=== PATIENT | female | born 1975 | race Caucasian/White ===

== ENCOUNTER 2018-04-06 11:02 | Inpatient (IN) | payer BC ==
[2018-03-11 12:02] VITALS: BMI 27.6
[2018-04-06] MEDS ORDERED: Propofol 10 mg/ml Inj (20 ML) ONE (13:13)
[2018-04-06] MEDS ORDERED: Midazolam 2 MG/2 ML VIAL ONE (13:14)
[2018-04-06] MEDS ORDERED: Rocuronium 10 mg/ml (5 ml) ONE (13:17)
[2018-04-06] MEDS ORDERED: Bupivacaine Liposomal Inj 20 ml ONE (13:37)
[2018-04-06] MEDS ORDERED: ePHEDrine 50 mg/ml Inj ONE (14:03)
[2018-04-06] MEDS ORDERED: Neostigmine Methylsulfate 3mg/3ml Syringe IV ONE (14:10)
[2018-04-06] MEDS ORDERED: Glycopyrrolate 0.2 mg/ml (2ml vial) ONE (14:11)
[2018-04-06] MEDS: HYDROmorphone 0.5 mg/0.5 ml ISec ONE ×3 (15:07→15:40)
[2018-04-06] MEDS ORDERED: HYDROmorphone 0.5 mg/0.5 ml ISec IVP PRN (15:08)
[2018-04-06] MEDS ORDERED: HYDROmorphone 0.2 mg/ml (30ml) 30 ML IV PRN ×2 (15:14→15:22)
[2018-04-06] MEDS ORDERED: Lactated Ringer's 1,000 ML IV SCH (15:15)
--- NOTE | 2018-04-06 15:21 | PCM.SURG1 ---
Surgeon's Initial Post Op Note - Surgeon's Notes Surgeon: Dr. Thom Holt Straight Knife Cutter Machine: Archana Ramirez PGY2 Type of Anesthesia: General Endo Anesthesia Administered By: Dr. Foster Pre-Operative Diagnosis: uterine fibroids, hemorrhagia, anemia Operative Findings: numerous uterine fibroids, adequate hemostasis obtained by the end of the case via electrocautery and suture ligation Post-Operative Diagnosis: same Operation Performed: laparotomy, supracervical hysterectomy, BL salpingectomy Specimen/Specimens Removed: uterus, BL fallopian tubes Estimated Blood Loss: EBL {In ML}: 30 Blood Products Given: N/A Drains Used: No Drains Post-Op Condition: Fair Date of Surgery/Procedure: 04/06/18 Time of Surgery/Procedure: 13:00
[2018-04-06] MEDS ORDERED: HYDROmorphone 0.5 mg/0.5 ml ISec ONE ×3 (15:27→15:56)
[2018-04-07 07:10] LABS: BASO # 0.01 K/mm3 (0.0-2.0); BASO % 0.1 % (0.0-3.0); GRAN # 14.69 (1.4-6.5); GRAN % 83.8 % (50.0-68.0); HEMOGLOBIN 10.6 g/dL (12.0-16.0); LYMPH # 1.9 (1.2-3.4); LYMPH % 10.6 % (22.0-35.0); MEAN CELL VOLUME 74.5 fl (80.0-105.0); MEAN CORPUSCULAR HEMOGLOBIN 23.1 pg (25.0-35.0); MEAN PLATELET VOLUME 9.8 fl (7.0-11.0); MONO % 5.5 % (1.0-6.0); RBC 4.59 10^6/uL (3.5-6.1); RED CELL DISTRIBUTION WIDTH 17.3 % (11.5-14.5); WHITE BLOOD COUNT 17.5 10^3/ul (4.5-11.0)
[2018-04-07 07:13] LABS: BLOOD UREA NITROGEN 9 mg/dL (7-21); CALCIUM 8.6 mg/dL (8.4-10.5); GFR NON-AFRICAN AMERICAN > 60
[2018-04-07 07:43] VITALS: BP 136/84; PULSE 65; RESP 20; TEMP 99.9; O2SAT 99
[2018-04-07] MEDS: Oxycodone/Acetaminophen 5/325 mg Tab PO PRN ×2 (09:48→13:04)
--- NOTE | 2018-04-07 10:08 | CP.PCM.DIS ---
Provider - Provider Date of Admission: 04/06/18 11:02 Attending physician: Asif Holt MD Time Spent in preparation of Discharge (in minutes): 35 Diagnosis - Discharge Diagnosis (1) Status post bilateral salpingectomy Status: Acute (2) Status post hysterectomy Status: Acute (3) Fibroid (bleeding) (uterine) Status: Chronic (4) Anemia Status: Chronic Hospital Course - Lab Results Lab Results: Most Recent Lab Values WBC 17.5 10^3/ul (4.5-11.0) H D 04/07/18 06:30 RBC 4.59 10^6/uL (3.5-6.1) 04/07/18 06:30 Hgb 10.6 g/dL (12.0-16.0) L 04/07/18 06:30 Hct 34.2 % (36.0-48.0) L 04/07/18 06:30 MCV 74.5 fl (80.0-105.0) L 04/07/18 06:30 MCH 23.1 pg (25.0-35.0) L 04/07/18 06:30 MCHC 31.0 g/dl (31.0-37.0) 04/07/18 06:30 RDW 17.3 % (11.5-14.5) H 04/07/18 06:30 Plt Count 283 10^3/uL (120.0-450.0) 04/07/18 06:30 MPV 9.8 fl (7.0-11.0) 04/07/18 06:30 Gran % 83.8 % (50.0-68.0) H 04/07/18 06:30 Lymph % (Auto) 10.6 % (22.0-35.0) L 04/07/18 06:30 Curry % (Auto) 5.5 % (1.0-6.0) 04/07/18 06:30 Eos % (Auto) 0.0 % (1.5-5.0) L 04/07/18 06:30 Baso % (Auto) 0.1 % (0.0-3.0) 04/07/18 06:30 Gran # 14.69 (1.4-6.5) H 04/07/18 06:30 Lymph # (Auto) 1.9 (1.2-3.4) 04/07/18 06:30 Curry # (Auto) 1.0 (0.1-0.6) H 04/07/18 06:30 Eos # (Auto) 0.0 (0.0-0.7) 04/07/18 06:30 Baso # (Auto) 0.01 K/mm3 (0.0-2.0) 04/07/18 06:30 Sodium 136 mmol/L (132-148) 04/07/18 06:30 Potassium 3.9 mmol/L (3.6-5.0) 04/07/18 06:30 Chloride 103 mmol/L (98-107) 04/07/18 06:30 Carbon Dioxide 26 mmol/L (21-33) 04/07/18 06:30 Anion Gap 11 (10-20) 04/07/18 06:30 BUN 9 mg/dL (7-21) 04/07/18 06:30 Creatinine 0.6 mg/dl (0.7-1.2) L 04/07/18 06:30 Est GFR ( Amer) > 60 04/07/18 06:30 Est GFR (Non-Af Amer) > 60 04/07/18 06:30 Random Glucose 126 mg/dL (70-110) H 04/07/18 06:30 Calcium 8.6 mg/dL (8.4-10.5) 04/07/18 06:30 Urine HCG, Qual Negative (NEGATIVE) 04/06/18 11:00 - Hospital Course Hospital Course: Pt is a 42F with PMH of uterine fibroid, hemorrhagia, and chronic anemia who presented to same day and underwent a laparotomy, supracervical hysterectomy, and bilateral salpingectomy with no complications. Patient was admitted to the medical surgical floor for monitoring and pain management. Patient recovered well and was discharged to home with instructions to follow up with Dr. Holt in his office. Discharge Exam - Head Exam Head Exam: ATRAUMATIC, NORMOCEPHALIC - Eye Exam Eye Exam: Normal appearance. absent: Conjunctival injection, Scleral icterus - ENT Exam ENT Exam: Mucous Membranes Moist, Normal Oropharynx - Respiratory Exam Respiratory Exam: NORMAL BREATHING PATTERN, UNREMARKABLE. absent: Accessory Muscle Use - Cardiovascular Exam Cardiovascular Exam: RRR - GI/Abdominal Exam GI & Abdominal Exam: Soft, Tenderness (BL lower quadrant and conchita-incisional tenderness to palpation). absent: Distended Additional comments: Lower abdominal incision well approximated with dermabond, no surrounding inflammation, drainage, or bleeding - Extremities Exam Extremities exam: normal inspection, pedal pulses present - Neurological Exam Neurological exam: Alert, Oriented x3 - Psychiatric Exam Psychiatric exam: Normal Affect, Normal Mood - Skin Skin Exam: Dry, Normal Color, Warm Discharge Plan - Discharge Medications Prescriptions: oxyCODONE/Acetaminophen [Percocet 5/325 mg Tab] 1 tab PO Q4H PRN #16 tab PRN Reason: Pain, Moderate (4-7) - Follow Up Plan Condition: GOOD Disposition: HOME/ ROUTINE Instructions: Uterine Fibroid Removal (DC) Additional Instructions: Call Dr. Holt's office to schedule a follow up appointment in 1 week You may shower, but do not soak the incisions, do not attempt to remove the surgical glue dressing Do not lift >[address] Holt's office or come to ER for any fever >100.4 not resolved with tylenol, worsening pain, nausea, vomiting, or drainage from in the incision, or any other concerning symptoms Referrals: Asif Holt MD [Staff Provider] - Clinical Quality Measures - CQM - Stroke Antithrombotic Prescribed: Medical Contraindication Present (SCD were utilized) Contranindication/Reason for not providing: Risk for Bleeding (s/p hysterectomy)
--- NOTE | 2018-04-20 03:51 | OP ---
PROCEDURE DATE: 04/06/2018 PREOPERATIVE DIAGNOSES: Severe menometrorrhagia, symptomatic fibroid uterus, pelvic pain. POSTOPERATIVE DIAGNOSIS: Severe menometrorrhagia, symptomatic fibroid uterus, pelvic pain. PROCEDURE PERFORMED: Laparotomy, supracervical abdominal hysterectomy, bilateral ovarian salpingectomies. SURGEON: Asif Holt MD. YARN PACKER: . ANESTHESIA: General endotracheal. ESTIMATED BLOOD LOSS: 100 mL. FINDINGS: The uterus size was approximately 15 weeks in size with multiple fibroids. Ovaries found to be normal. No signs of endometriosis noted. DESCRIPTION OF PROCEDURE: After a long discussion was held with the patient and family regarding her surgery, all consents were signed, procedure was explained to the patient, patient was brought into the operating room. General endotracheal anesthesia was induced. The patient was prepped and draped in usual sterile fashion. Araya catheter was inserted. Pfannenstiel skin incision was made. Incision was brought down to the fascia. The fascia was opened, rectus muscles split, peritoneum was visualized, grasped with 2 hemostats, opened superiorly and inferiorly avoiding the bladder. Entrance in the pelvic cavity, the uterus was noted to be approximately 15 weeks in size with multiple fibroids extending laterally as well as superiorly. With the bowels and an O'Edinson-O'Aguilar retractor placed an underlaps. The uterus was slightly elevated upwards. Using the LigaSure device, round ligaments were first visualized, grasped, elevated, clamped and fired upon. As this was an ovarian sparing procedure, the ovarian ligaments were then clamped, cut, fired upon and sealed. This continued down until the cardinal ligaments were reached. At this point, the bladder flap was created with sharp dissection and was brought down. Then, using the Kochers, the cardinal ligaments were grasped, clamped, cut and the suture ligated with 0 Vicryl suture. The cervix was amputated from the remainder of the uterine body. The entire uterus then was sent to pathology for examination. Using a small LEEP, the endocervical canal was excised. This was followed with suturing and imbricating of the cervical stump using 0 Vicryl suture. Hemostasis was excellent throughout this entire time. Minimal amount of blood loss noted. The fallopian tubes were then visualized, grasped and fired upon with the LigaSure device, thus amputating and removing the salpinges. Hemostasis again was excellent. As of note, examination of the ovaries revealed no abnormalities. No ovarian cysts. Left ovary was slightly atrophic in its findings. The pelvis then was thoroughly irrigated, suctioned dry. Hemostasis was excellent. All instruments were removed. All laps were accounted for. The closure was initiated. Peritoneum was closed with 2-0 chromic. Fascia was closed with 0 Vicryl. Subcu was closed with 2-0 plain and 4-0 Monocryl was used for the skin. The patient tolerated the procedure well. Dermabond was applied. She was awakened, sent to the recovery room in stable condition. Asif Holt MD
== END 2018-04-07 13:45 | disposition home or self-care (01) | DRG 743 ==
LOC: SDAINP 11:02 → EDSTATUS 13:00 → 5RNO 16:32
PROVIDERS: ADMIT Obstetrics & Gynecology Gynecology; ATTEND Obstetrics & Gynecology Gynecology
PROC: 0UT70ZZ Resection of Bilateral Fallopian Tubes, Open Approach (ICD-10-PCS; 2018-04-06)
PROC: 0UT90ZL Resection of Uterus, Supracervical, Open Approach (ICD-10-PCS; principal; 2018-04-06 13:00)
DX: D25.9 Leiomyoma of uterus, unspecified (principal); N92.1 Excessive and frequent menstruation with irregular cycle; D64.9 Anemia, unspecified; R10.2 Pelvic and perineal pain